=== PATIENT | male | born 1955 | race Two or more races ===

== ENCOUNTER 2016-07-04 13:28 | Emergency (ER) | payer OTHER ==
[~2016-07-04] VITALS: Ht 188 cm; Wt 95.3 kg
[2016-07-04] MEDS ORDERED: VIBRAMYCIN100 MG ORAL (13:45)
[2016-07-04] MEDS ORDERED: PREDNISONE20 MG ORAL (13:45)
[2016-07-04] MEDS ORDERED: SPIRIVA18 MCG INH (13:46)
[2016-07-04] MEDS ORDERED: OMEPRAZOLE20 M2 ORAL (13:46)
[2016-07-04] MEDS ORDERED: VENTOLIN HFA18 GM INH (13:46)
[2016-07-04] MEDS ORDERED: METHADONE HCL10 MG PO (13:46)
[2016-07-04] MEDS ORDERED: Ipratropium 0.02% Inh Soln 2.5ml UD HHN ONE (14:00)
[2016-07-04] MEDS ORDERED: Albuterol ud Inhalation HHN ONE (14:00)
[2016-07-04] MEDS ORDERED: COMBIVENT RESPIM4 GM IH (14:45)
[2016-07-04] MEDS ORDERED: ZITHROMAX250 MG ORAL (14:45)
[2016-07-04 14:51] VITALS: BP 151/91
--- NOTE | 2016-07-04 19:27 | Emergency Room Report ---
History of Present Illness General Chief Complaint: Upper Respiratory Illness Source: Patient (RUBEN OLIVIA) Present Illness HPI The patient is a 60-year-old male with a history of COPD presenting for productive cough and subjective fevers for 2 weeks. The patient states that he went to another emergency Department one week prior and was given a prescription for doxycycline, prednisone, and albuterol which has not been helping. The patient denies any sick contacts or recent travel. Patient denies any other symptoms including N, V, F, chills, AN, CP, SOB (RUBEN OLIVIA) Allergies: Coded Allergies: No Known Allergies (Unverified , 07/04/16) Patient History Past Medical History: see triage record Pertinent Family History: none Social History: Reports: smoking Reviewed Nursing Documentation: PMH: Agreed, PSxH: Agreed (RUBEN OLIVIA) Nursing Documentation-PMH Past Medical History: No History, Except For Hx COPD: Yes (RUBEN OLIVIA) Review of Systems All Other Systems: negative except mentioned in HPI (RUBEN OLIVIA) Physical Exam Vital Signs Date Time Temp Pulse Resp B/P Pulse Ox O2 Delivery O2 Flow Rate FiO2 07/04/16 13:38 98.1 86 14 170/95 94 Room Air 07/04/16 14:12 21 Sp02 EP Interpretation: reviewed, normal General Appearance: no apparent distress, alert, GCS 15, non-toxic Head: normocephalic, atraumatic Eyes: bilateral eye PERRL, bilateral eye normal inspection ENT: hearing grossly normal, normal pharynx, no angioedema, normal voice, TMs + canals normal, uvula midline Neck: full range of motion, supple/symm/no masses Respiratory: chest non-tender, no respiratory distress, no accessory muscle use , decreased breath sounds, wheezing - diffuse Cardiovascular #1: regular rate, rhythm, no edema Gastrointestinal: normal bowel sounds, non tender, soft, non-distended, no guarding, no rebound Genitourinary: normal inspection, no CVA tenderness Musculoskeletal: back normal, gait/station normal, normal range of motion, non- tender Neurologic: alert, oriented x3, responsive, motor strength/tone normal, sensory intact, speech normal Psychiatric: judgement/insight normal, memory normal, mood/affect normal, no suicidal/homicidal ideation Skin: normal color, no rash, warm/dry, well hydrated Lymphatic: no adenopathy (RUBEN OLIVIA) Medical Decision Making PA Attestation Dr. Aguirre is my supervising physician. Patient management was discussed with my supervising physician (RUBEN OLIVIA) Diagnostic Impression: Primary Impression: COPD exacerbation ER Course The patient is a 60-year-old male with a history of COPD presenting for productive cough and fever Differential diagnosis include but not limited to COPD exacerbation, pharyngitis , bronchitis, PNA Physical exam: Afebrile. Apparent distress HEENT exam is unremarkable. No tonsillar edema or erythema. Uvula midline. No cervical lymphadenopathy Lungs: There is wheezing and decreased breath sounds diffusely Chest x-ray shows increased bronchovascular markings. Otherwise unremarkable The patient is given a breathing treatment and is feeling better. Lung sounds have increased. The patient will be discharged home with a prescription for azithromycin and combivent. ER precautions given (RUBEN OLIVIA) ER Course Scribe documentation reviewed by me and is accurate. (Nikko Aguirre M.D.) Chest X-Ray Diagnostic Results EP Interpretation: Yes Findings: no consolidation, no effusion, no pneumothorax, other - increased bronchovascular markings Number of Views: 1 PA Scribe Text I am acting as scribe for my supervising physician. My supervising physician's interpretation of the chest xrays are there is no consolidation, no effusion, no acute cardiopulmonary disease, no pneumothorax (RUBEN OLIVIA) Last Vital Signs Date Time Temp Pulse Resp B/P Pulse Ox O2 Delivery O2 Flow Rate FiO2 07/04/16 14:51 83 16 151/91 100 Room Air 07/04/16 14:51 98.0 21 Status: improved (RUBEN OLIVIAAHaydee) Disposition: HOME, SELF-CARE Condition: Improved Scripts Ipratropium/Albuterol Sulfate (Combivent Respimat Inhal [place]) 4 Gm Mist.inhal 1 INH IH Q6HR, #4 GM Prov: RUBEN OLIVIA 07/04/16 Azithromycin* (ZITHROMAX*) 250 Mg Tablet 250 MG ORAL DAILY, #6 TAB 0 Refills Take two tables once daily for 1 day, then one tablet once daily for 4 days. Prov: RUBEN OLIVIA 07/04/16 Patient Instructions: Chronic Obstructive Pulmonary Disease Additional Instructions: I discussed my findings with the patient. All questions and concerns have been answered. Treatment and medication compliance have been addressed. I advised the patient that they need to follow up with PMD in 3-5 days. Return to ED if pain remains or worsens, cough worsens or remains, you notice blood in your sputum, you notice wheezing, you experience a fever, or if needed for any reason. Patient verbalized understanding of discharge instructions. RUBEN OLIVIA Jul 04, 2016 19:27 Nikko Aguirre M.D. Jul 05, 2016 01:28
--- NOTE | 2016-07-05 10:32 | Diagnostic Imaging Report ---
Indication: COUGH Technique: Single portable AP view of the chest. Findings: Comparison: None. Small calcified nodule suggested in/over left lung base The bones and extra pulmonary soft tissues, cardiomediastinal silhouette, pulmonary vasculature and parenchyma, and pleural surfaces are otherwise unremarkable. IMPRESSION: Granuloma versus artifact in the/over left lung base Otherwise negative.
== END 2016-07-04 14:52 | disposition home or self-care (01) ==
LOC: EMR 14:00
DX: J44.1 Chronic obstructive pulmonary disease with (acute) exacerbation (principal); F17.200 Nicotine dependence, unspecified, uncomplicated
CPT/HCPCS: 71010; 94640; 94664; 99284

== ENCOUNTER 2020-03-18 17:44 | Emergency (ER) | payer MEDICARE, OTHER ==
[~2020-03-18] VITALS: Ht 188 cm; Wt 99.8 kg
[~2020-03-18 17:44] MED LIST: COMBIVENT RESPIM4 GM IH; METHADONE HCL10 MG PO; OMEPRAZOLE20 M2 ORAL; PREDNISONE20 MG ORAL; SPIRIVA18 MCG INH; VENTOLIN HFA18 GM INH; VIBRAMYCIN100 MG ORAL; ZITHROMAX250 MG ORAL
--- NOTE | 2020-03-18 17:59 | Emergency Room Report ---
History of Present Illness General Chief Complaint: Hypertension Source: Patient Present Illness HPI 64-year-old male with history of hypertension on amlodipine, history of opioid use disorder on methadone, here with hypertension. Patient says that he checked his blood pressure earlier today and it was 166/101. He had taken his morning dose of amlodipine just a few minutes before he checked his blood pressure. Here in the emergency department the patient has no complaints. Denies headaches, vision changes, lightheadedness, chest pain, palpitation, shortness of breath, back pain, abdominal pain, nausea, vomiting, diarrhea, dysuria. 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: No Nursing Documentation-[facility] Past Medical History: No History, Except For Hx Hypertension: Yes Hx COPD: Yes Hx Diabetes: Yes Review of Systems All Other Systems: negative except mentioned in HPI Physical Exam Vital Signs Date Time Temp Pulse Resp B/P (MAP) Pulse Ox O2 Delivery O2 Flow Rate FiO2 03/18/20 17:45 90 17 140/86 (104) 98 Room Air Sp02 EP Interpretation: reviewed, normal General Appearance: no apparent distress, alert, non-toxic Head: normocephalic, atraumatic Eyes: bilateral eye normal inspection, bilateral eye PERRL ENT: hearing grossly normal, normal pharynx, no angioedema, normal voice Neck: full range of motion, supple/symm/no masses Respiratory: chest non-tender, lungs clear, normal breath sounds, speaking full sentences Cardiovascular #1: regular rate, rhythm, no edema Cardiovascular #2: 2+ carotid (R), 2+ carotid (L), 2+ radial (R), 2+ radial (L), 2+ dorsalis pedis (R), 2+ dorsalis pedis (L) Gastrointestinal: normal bowel sounds, non tender, soft, non-distended, no guarding, no rebound Rectal: deferred Genitourinary: normal inspection, no CVA tenderness Musculoskeletal: back normal, normal range of motion, gait/station normal, non- tender Neurologic: alert, motor strength/tone normal, oriented x3, sensory intact, responsive, speech normal Psychiatric: judgement/insight normal, memory normal, mood/affect normal, no suicidal/homicidal ideation Lymphatic: no adenopathy Medical Decision Making Diagnostic Impression: Primary Impression: Hypertension ER Course EKG: NSR, no ischemia, intervals WNL. No ectopy. Rate 73 bpm Rhythm strip: patient monitored for arrhythmias - no malignant dysrhythmias, runs of PVCs, nor pauses noted 64-year-old male here with hypertension. Patient checked his blood pressure at home and it was 166/101. He had taken his dose of amlodipine 5 mg just prior to checking his blood pressure at home. Here in the emergency department patient had a blood pressure of 140/86. Had no evidence of endorgan dysfunction. He had normal neurologic examination, normal cardiovascular examination. EKG was unremarkable. Note occasional blood work at this time. Patient was told to come back to the emergency department for any chest pain, lightheadedness, vision changes extreme headaches, focal numbness or weakness. Expressed understanding and was discharged. Last Vital Signs Date Time Temp Pulse Resp B/P (MAP) Pulse Ox O2 Delivery O2 Flow Rate FiO2 03/18/20 17:45 90 17 140/86 (104) 98 Room Air Disposition: HOME, SELF-CARE Condition: Stable Referrals: [facility] Patient Instructions: Hypertension Genaro Sharma M.D. Mar 18, 2020 17:59
[2020-03-18 18:15] VITALS: BP 141/85
--- NOTE | 2020-03-19 14:37 | Cardiology Report ---
APPROVED REPORT EKG Measurement Heart [id number] <Conclusion> Normal sinus rhythm Normal ECG
== END 2020-03-18 18:15 | disposition home or self-care (01) ==
LOC: EMR 18:00
DX: I10 Essential (primary) hypertension (principal); J44.9 Chronic obstructive pulmonary disease, unspecified; E11.9 Type 2 diabetes mellitus without complications
CPT/HCPCS: 82962; 93005; 99283